=== PATIENT | male | born 1985 | race Caucasian/White ===

== ENCOUNTER → 2016-11-01 | Outpatient (CLI) | payer BC ==
[2016-11-01 20:09] LABS: BASO % 1 % (0-3); EOS # 0.1 x10^3/uL (0.0-0.7); EOS % 1 % (0-3); HEMATOCRIT 40.2 % (39.0-53.0); HEMOGLOBIN 13.3 g/dL (13.0-17.5); LYMPH # 1.2 x10^3/uL (1.0-4.8); LYMPH % 20 % (24-48); MEAN CORPUSCULAR HEMOGLOBIN 29 pg (25-35); MEAN CORPUSCULAR HGB CONC 33 g/dL (31-37); MEAN CORPUSCULAR VOLUME 87 fL (79-100); MONO # 0.6 x10^3/uL (0.0-1.1); MONO % 10 % (0-9); NEUT # 4.1 x10^3uL (1.8-7.7); NEUT % 69 % (31-73); PLATELET COUNT 302 x10^3/uL (140-400); RED BLOOD COUNT 4.63 x10^6/uL (4.30-5.70); RED CELL DISTRIBUTION WIDTH 12.4 % (11.5-14.5); WHITE BLOOD COUNT 5.9 x10^3/uL (4.0-11.0)
[2016-11-01 20:10] LABS: CALCIUM 9.3 mg/dL (8.5-10.1); CREATININE 0.9 mg/dL (0.7-1.3); GFR 97.2; POTASSIUM 3.5 mmol/L (3.5-5.1); TOTAL BILIRUBIN 0.5 mg/dL (0.2-1.0)
== END | disposition home or self-care (01) ==
LOC: LAB 19:14
PROVIDERS: ATTEND Family Medicine
DX: R07.89 Other chest pain (principal)
CPT/HCPCS: 36415; 80053; 82553; 84443; 84484; 85027; 85379

== ENCOUNTER → 2019-10-10 | Outpatient (CLI) | payer OTHER ==
--- NOTE | 2019-10-10 10:45 | RAD ---
Left shoulder 3 views: Reason for examination: Left shoulder pain. Unknown injury. No acute fracture or dislocation is seen. The bone density is normal. No abnormal periosteal reaction is seen. Joint spaces appear to be maintained. IMPRESSION: No acute bony abnormality evident at the left shoulder. Electronically signed by: Lynsey Reyes MD (10/10/2019 10:42 AM) [id number]
--- NOTE | 2019-10-10 11:10 | RAD ---
Sonography of the chest Clinical indications: Patient indicated lump/fullness and tenderness in the upper left chest just inferior to the left clavicle.. FINDINGS: High-resolution sonography of the area of clinical concern was performed. There is echogenic soft tissue fullness within the region in comparison to the right side (which was evaluated for comparison). This may indicate asymmetric lipomatous tissue. No other discrete solid mass or cyst or abscess or enlarged lymph node is seen. IMPRESSION: Asymmetric echogenic soft tissue fullness is seen in area of clinical concern of the upper left chest in comparison to the right side. This could represent asymmetric lipomatous tissue. This may be further evaluated with a chest CT and IV contrast for further evaluation if clinically needed. At least clinical follow-up is needed with regard to any growth in size. Electronically signed by: Ousmane Huddleston MD (10/10/2019 11:07 AM) [id number]
== END ==
LOC: US 10:12
PROVIDERS: ATTEND Nurse Practitioner Adult Health
DX: S43.492S Other sprain of left shoulder joint, sequela (principal); R03.0 Elevated blood-pressure reading, without diagnosis of hypertension; R07.89 Other chest pain; R22.2 Localized swelling, mass and lump, trunk; X58.XXXS Exposure to other specified factors, sequela
CPT/HCPCS: 73030; 76604